=== PATIENT | female | born 1940 | race Caucasian/White ===

== ENCOUNTER 2017-03-25 11:46 | Day surgery (SDC) | payer MEDICARE, BC ==
[2017-03-18 14:44] VITALS: BMI 22.8
[2017-03-25] MEDS ORDERED: Propofol 10 mg/ml Inj (20 ML) ONE (13:29)
[2017-03-25 13:48] VITALS: RESP 18; TEMP 97.9
[2017-03-25] MEDS ORDERED: Sodium Chloride 0.9% 1,000 ML IV SCH (14:00)
[2017-03-25 14:10] VITALS: BP 146/81; PULSE 70; O2SAT 98
== END 2017-03-25 15:35 | disposition home or self-care (01) ==
LOC: ENDO 11:46
PROVIDERS: ATTEND Internal Medicine
DX: Z12.11 Encounter for screening for malignant neoplasm of colon (principal); K57.30 Diverticulosis of large intestine without perforation or abscess without bleeding; K64.8 Other hemorrhoids; I10 Essential (primary) hypertension
CPT/HCPCS: 45378; J2704; J7040 ×2